=== PATIENT | male | born 1985 | race African-American/Black ===

== ENCOUNTER 2016-11-26 17:34 | Emergency (ER) | payer SELFPAY ==
[~2016-11-26] VITALS: Ht 182.9 cm; Wt 85.0 kg
[~2016-11-26 17:34] MED LIST: PENVK500 PO; ULTR50TA PO
[2016-11-26 17:35] VITALS: BP 139/77; PULSE 75; RESP 18; TEMP 98.7; O2SAT 100
--- NOTE | 2016-11-26 17:52 | PD ---
Physical Exam Time Seen by Provider: 17:52 Narrative 31 y/o male here with sharp lower back pain. Vital signs reviewed. Seen at triage desk. Awaiting bed placement. Data Data Last Documented VS Vital Signs Date Time Temp Pulse Resp B/P Pulse Ox O2 Delivery O2 Flow Rate FiO2 11/26/16 17:35 98.7 75 18 139/77 100 Room Air [facility] Medical Record Reviewed: Yes Supervised Visit with JOHN: No Larry Chamberlain Nov 26, 2016 17:52
== END 2016-11-26 20:20 | disposition left against medical advice (07) ==
LOC: NEDAMB 17:34
DX: M54.5 Low back pain (principal); Z53.21 Procedure and treatment not carried out due to patient leaving prior to being seen by health care provider
CPT/HCPCS: 99281

== ENCOUNTER 2017-09-21 19:34 | Emergency (ER) | payer SELFPAY ==
[~2017-09-21] VITALS: Ht 188 cm; Wt 100.0 kg
[2017-09-21 19:54] VITALS: BP 159/87; PULSE 90; RESP 16; TEMP 99.1; O2SAT 98
--- NOTE | 2017-09-21 22:06 | PD ---
HPI Chief Complaint: Abdominal Pain Time Seen by Provider: 21:56 Travel History International Travel<30 days: No Contact w/Intl Traveler<30days: No Traveled to known affect area: No History of Present Illness HPI 31-year-old black male presents emergency department requesting treatment of chlamydia. He states that he had intercourse with a female that came positive for chlamydia. He does report using condoms but has noted the condoms to have broken in the past. He does report some slight burning at the tip of his penis. He denies any urethral discharge. No rashes or lesions. No fever chills. No nausea vomiting. No abdominal pain or back pain. Symptoms are mild. No alleviating factors. History Past Medical Histgory Medical History: Denies Significant Hx Tetanus Vaccination: Unknown Past Surgical History Surgical History: No Previous Surgery Social History Alcohol Use: Yes Tobacco Use: Yes Allergies-Medications (Allergen,Severity, Reaction): Coded Allergies: No Known Allergies (Unverified Adverse Reaction, Unknown, 09/21/17) Reported Meds & Prescriptions Reported Meds & Active Scripts Active Penicillin V Potassium 500 Mg Tab 500 Mg PO QID Ultram (Tramadol HCl) 50 Mg Tab 50 Mg PO Q6HR PRN No Active Prescriptions or Reported Medications Review of Systems Except as stated in HPI: all other systems reviewed are Neg Physical Exam Narrative GENERAL: This is a well-nourished, well-developed patient, in no apparent distress. SKIN: No rashes, ecchymoses or lesions. Warm and dry. HEAD: Atraumatic. Normocephalic. EYES: PERRL, EOMI, no discharge or injection. No scleral icterus. EARS: Clear NOSE: Nasal turbinates appear normal. THROAT: Mucosa pink and moist. Airway patent. NECK: Trachea midline. supple, moves head freely. LUNGS: Clear to auscultation. CV: Regular in rhythm. ABDOMEN: Soft nontender. EXT: No clubbing cyanosis or edema. Data Data Last Documented VS Vital Signs Date Time Temp Pulse Resp B/P (MAP) Pulse Ox O2 Delivery O2 Flow Rate FiO2 09/21/17 19:54 99.1 90 16 159/87 (111) 98 MDM Medical Screen Exam Complete: Yes Emergency Medical Condition: No Differential Diagnosis MDM: Moderate Differential diagnoses: Chlamydia, gonorrhea, syphilis, chancroid, hepatitis, HIV, herpes Narrative Course A medical screening exam was performed: At the time of evaluation the presenting medical condition was determined not to be of an emergent nature. The patient was given the option of receiving additional care, but declined. Patient was given options for additional community resources from which to obtain care. The Patient Has Been advised to seek medical attention for their presenting complaint. The patient has been advised to return to the ER at any time if an emergent condition develops. Primary Impression: Encounter for medical screening examination Condition: Stable Julito Garcia September 21, 2017 22:06
== END 2017-09-21 22:10 | disposition left against medical advice (07) ==
LOC: NEPD 19:34
DX: R10.9 Unspecified abdominal pain (principal)
CPT/HCPCS: 99281; 99282